=== PATIENT | male | born 1960 | race Caucasian/White ===

== ENCOUNTER 2019-10-29 13:49 | Inpatient (IN) | payer OTHER, SELFPAY ==
--- NOTE | 2019-10-29 16:33 | RAD ---
LEFT KNEE FOUR VIEWS: History: Knee injury. FINDINGS: There is some mild medial compartment joint space narrowing. There is a distracted patellar fracture. The main fracture line extends through the midportion of the patella although there may be a fractur e component through the inferior portion in addition to the main fracture line. IMPRESSION: Distracted patellar fracture. POS: HARRY
[2019-10-29] MEDS ORDERED: traMADol HCl 50 MG TAB PO PRN (17:43)
[2019-10-29] MEDS ORDERED: Ondansetron PF 4 MG/2 ML Vial IVP PRN (17:43)
[2019-10-29] MEDS ORDERED: Cyclobenzaprine 10 MG TAB PO PRN (17:43)
[2019-10-29] MEDS ORDERED: Dextrose 50% Abboject 50 ML SYRINGE SLOW IVP PRN (17:43)
[2019-10-29] MEDS ORDERED: HumaLOG 300 UNITS/3 ML VIAL SC PRN (17:43)
[2019-10-29] MEDS ORDERED: Ondansetron ODT 4 MG TAB PO PRN (17:43)
[2019-10-29] MEDS ORDERED: hydrALAZINE 20 MG/ML VIAL SLOW IVP PRN (17:43)
[2019-10-29] MEDS ORDERED: Dextrose 5% in Water 1,000 ML IV PRN (17:43)
[2019-10-29] MEDS ORDERED: Morphine 2 MG/ML VIAL SLOW IVP PRN (17:43)
[2019-10-29 17:51] LABS: #Eosinphils 0.4 thou/uL (0.0-0.7); #Monocytes 0.5 thou/uL (0.11-0.59); #Neutrophils 4.1 thou/uL (1.40-6.50); %Basophils 0.3 % (0.0-1.0); %Eosinophils 5.3 % (0.0-10.0); %Lymphocytes 29.1 % (21.0-51.0); %Monocytes 6.8 % (0.0-10.0); %Neutrophils 58.6 % (42.0-75.0); Hemoglobin 14.1 g/dL (14.0-18.0); Mean Corpuscular HGB CONC 33.9 g/dL (32.0-36.0); Mean Corpuscular Hemoglobin 30.5 pg (27.0-31.0); Mean Corpuscular Volume 89.9 fL (78.0-98.0); Mean Platelet Volume 9.7 fL (7.4-10.4); Platelet Count 211 thou/uL (130-400); RBC Distribution Width 11.5 % (11.5-14.5); Red Blood Cell (RBC) Count 4.63 mill/uL (4.70-6.10)
[2019-10-29 18:00] LABS: Anion Gap 13 mmol/L (10-20); BUN (Urea Nitrogen) 13 mg/dL (8.4-25.7); Calc. Creatinine Clearance 0 mL/min (70-130); Calcium 9.2 mg/dL (7.8-10.44); Carbon Dioxide 26 mmol/L (22-29); Chloride 104 mmol/L (98-107); Estimated GFR-MDRD 79; Glucose 92 mg/dL (70-105); Magnesium 1.8 mg/dL (1.6-2.6); Phosphorus 3.8 mg/dL (2.3-4.7); Potassium 3.6 mmol/L (3.5-5.1); Sodium 139 mmol/L (136-145)
[2019-10-29 18:17] VITALS: BMI 28.2
[2019-10-29] MEDS: Acetaminophen 325 MG TAB PO SCH (18:27)
--- NOTE | 2019-10-29 19:20 | HP ---
REQUESTING PHYSICIAN: Dr. Dasilva. ATTENDING SURGEON: Dr. Oh. CONSULTATIONS: Orthopedics, Dr. Radford. HISTORY OF PRESENT ILLNESS: The patient is a 59-year-old man, who reports having multiple falls onto his left knee. First knee injury was approximately 6 weeks ago. He reports that he has fallen at least 3 more times to include just a few days ago, which caused enough pain that he came to the emergency department today. He also had other complaints to include right ear pain, and he wanted his chronic rash evaluated. Upon evaluation and examination, the patient was noted to have a left patella fracture, right ear soft tissue infection, and psoriasis. We were asked to evaluate him for admission and obtain Orthopedic consultation regarding his knee injury. ALLERGIES: NONE. CURRENT MEDICATIONS: None. PAST MEDICAL HISTORY: None. PAST SURGICAL HISTORY: Right hernia repair. SOCIAL HISTORY: The patient is employed in agricultural business. He reports that he drinks on occasion, but definitely not more than once or twice a week. He uses chewing tobacco. He denies drug use. PHYSICAL EXAMINATION: VITAL SIGNS: Blood pressure 145/84, heart rate 99, respirations 18, oxygen saturation 99% on room air, temperature is 98.3. GENERAL: The patient is resting comfortably in bed. He is awake, alert, and oriented x3. [place] Coma Scale is 15. HEENT: Head is normocephalic and atraumatic. Eyes; extraocular motions are intact. PERRLA bilaterally. Ears; right ear has some superficial crusting and some salve applied to it. By report, the ear canal shows no evidence of otitis media. Oropharynx is clear. Neck : Nontender. Trachea is midline. No JVD. CHEST: Clear to auscultation with good inspiratory and expiratory effort. HEART: Regular rate and rhythm. ABDOMEN: Soft, flat, and nontender with active bowel sounds. PELVIS: Stable. EXTREMITIES: Neurovascularly intact x4. Left lower extremity; the knee has a moderate amount of anterior swelling over the patella with contusions noted. BACK: Atraumatic and nontender. SKIN: The patient has multiple areas of rash primarily on his lower extremities consistent with psoriasis. LABORATORY FINDINGS: White blood cell count 7.0, hemoglobin 14.1, hematocrit 41.6, platelets 211. Sodium 139, potassium 3.6, chloride 104, CO2 of 26, BUN 13, creatinine 0.97, glucose 92. Radiographs of the left knee show a displaced distracted left patella fracture. ASSESSMENT AND PLAN: 1. Status post fall with questionable acuity. 2. Left patella fracture. 3. Right otitis externa. 4. Psoriasis. Plan will be to admit the patient to the surgical floor. He will be placed in a knee immobilizer here in the emergency department. We will make him n.p.o. after midnight. We will do pain control, pulmonary toilet, gastritis and mechanical VTE prophylaxis. ER initiated Septra DS for his right ear. We will continue this. Dr. Radford has notified regarding the patient. He will evaluate him and determine whether he is treated operatively or nonoperatively, but currently, it is most likely be an operative procedure. The evaluation, examination, and laboratory and radiographic findings were done with Dr. Oh in the emergency department prior to this dictation. Job ID: [id number]
--- NOTE | 2019-10-29 21:16 | PDOC.CONS ---
- Consultation I have discussed the patient with the advanced practice provider and agree with the findings and plan of care annotated in their note dated 08/29/2019. I have examined the patient and reviewed the pertinent radiographic and laboratory findings. Briefly, 59-year-old male with left patella fracture. Multiple incidents over the last couple of months. Unclear timeline of injury. PLAN: Admit to trauma service Orthopedic surgery consulted.
[2019-10-29] MEDS: Famotidine 20 MG TAB PO SCH (21:33)
[2019-10-29] MEDS: Ibuprofen 600 MG TAB PO SCH (21:33)
[2019-10-29] MEDS: Sulfameth/Trimethoprim DS 800-160mg TAB PO SCH (21:33)
--- NOTE | 2019-10-29 23:25 | PDOC.BPN ---
- Brief Progress Note DATE OF SERVICE: 10/29/2019 SUBJECTIVE: Mr. Forrest is a 59-year-old male, status post ground level fall. he sustained left patella fracture . Patient has been mobilize and working with this condition for 5 days. Patient has been suing L knee brace at home for pain control OBJECTIVE: GENERAL: Currently, the patient is lying in bed comfortable with no acute respiratory distress, VITAL SIGNS: Stable. LUNGS: Clear bilaterally. HEART: Regular rate and rhythm. ABDOMEN: Soft, nondistended. EXTREMITY: L knee erythema , swollen and tender to palpation ASSESSMENT: 1. Status post ground level fall. 2. Left patella fracture delayed presentation PLAN: Continue supportive care. Continue pain control. continue physical therapy and occupational therapy. Dr Radford will take patient to the OR tomorrow for L patella fracture fixation . NPO at midnight
[2019-10-30] MEDS: Sodium Chloride 0.9% 1,000 ML IV SCH ×2 (00:20→16:12)
[2019-10-30] MEDS: Acetaminophen 325 MG TAB PO SCH ×5 (01:35→23:37)
[2019-10-30] MEDS: Ibuprofen 600 MG TAB PO SCH ×3 (05:39→21:21)
[2019-10-30 05:48] LABS: #Basophils 0.1 thou/uL (0.0-0.2); #Eosinphils 0.4 thou/uL (0.0-0.7); #Monocytes 0.6 thou/uL (0.11-0.59); #Neutrophils 3.2 thou/uL (1.40-6.50); %Basophils 0.9 % (0.0-1.0); %Eosinophils 6.7 % (0.0-10.0); %Lymphocytes 32.3 % (21.0-51.0); %Monocytes 9.2 % (0.0-10.0); %Neutrophils 51.1 % (42.0-75.0); Hemoglobin 13.2 g/dL (14.0-18.0); Mean Corpuscular HGB CONC 33.3 g/dL (32.0-36.0); Mean Corpuscular Hemoglobin 29.9 pg (27.0-31.0); Mean Corpuscular Volume 89.9 fL (78.0-98.0); Mean Platelet Volume 9.4 fL (7.4-10.4); Platelet Count 192 thou/uL (130-400); RBC Distribution Width 11.4 % (11.5-14.5); Red Blood Cell (RBC) Count 4.41 mill/uL (4.70-6.10); White Blood Cell (WBC) Count 6.3 thou/uL (4.8-10.8)
[2019-10-30 06:08] LABS: Anion Gap 10 mmol/L (10-20); BUN (Urea Nitrogen) 13 mg/dL (8.4-25.7); Calc. Creatinine Clearance 134 mL/min (70-130); Calcium 8.8 mg/dL (7.8-10.44); Carbon Dioxide 26 mmol/L (22-29); Chloride 106 mmol/L (98-107); Estimated GFR-MDRD Greater than 90; Glucose 90 mg/dL (70-105); Magnesium 1.9 mg/dL (1.6-2.6); Phosphorus 3.5 mg/dL (2.3-4.7); Sodium 138 mmol/L (136-145)
[2019-10-30] MEDS ORDERED: PROPOFOL 200 MG/20 ML VIAL ONE (09:18)
[2019-10-30] MEDS ORDERED: Bupivacaine HCl 0.5%/Epinephrine 1:200,000/PF 30 ml Vial ONE (09:18)
[2019-10-30] MEDS ORDERED: Ondansetron PF 4 MG/2 ML Vial ONE (09:18)
[2019-10-30] MEDS ORDERED: Lidocaine 1% PF 5 ML VIAL ONE (09:18)
[2019-10-30] MEDS: Famotidine 20 MG TAB PO SCH ×2 (11:21→21:21)
[2019-10-30] MEDS: Sulfameth/Trimethoprim DS 800-160mg TAB PO SCH ×2 (11:21→21:21)
[2019-10-30] MEDS: traMADol HCl 50 MG TAB PO PRN (11:28)
[2019-10-30 12:36] LABS: SARS-CoV-2 MS2 Positive; SARS-CoV-2 N Gene Negative; SARS-CoV-2 S Gene Negative; SARS-CoV-2 by NAA Not Detected (NotDetected); SARS-CoV-2 orf1ab Negative
[2019-10-30] MEDS ORDERED: Neomycin-Polymyxin 1 ML AMP ONE (14:31)
[2019-10-30] MEDS ORDERED: Midazolam HCl 2 mg/2 ml Vial ONE ×2 (14:46→14:49)
[2019-10-30] MEDS ORDERED: Fentanyl 100 MCG/2 ML VIAL ONE ×2 (14:46→14:49)
--- NOTE | 2019-10-30 15:44 | CON ---
DATE OF CONSULTATION: 10/30/2019 HISTORY OF PRESENT ILLNESS: Mr. Forrest 59-year-old white male, who reports that he fell at least 6 weeks ago and injured his left knee. He has been getting around, states his left knee has been very unstable and has been giving way and he has fallen at least 3 times more since then. The patient states that he has developed some right ear pain and he presented to the emergency room on 10/29/2019, for evaluation of the knee and his ear and also for his psoriasis. PAST MEDICAL HISTORY: Medical illnesses, none. CURRENT MEDICATIONS: None. ALLERGIES: NONE. PAST SURGICAL HISTORY: Right inguinal herniorrhaphy. PHYSICAL EXAMINATION: GENERAL: The patient is pleasant male, alert and oriented x3. VITAL SIGNS: Latest vital signs are temperature 97.8, pulse 82, respiratory rate 16, O2 saturation 99% on room air, blood pressure 129/76. HEENT: Unremarkable for age. Cranial nerves 2 through 12 are grossly intact. NECK: Has good range of motion without pain. LUNGS: Clear bilaterally. HEART: Regular rate and rhythm. ABDOMEN: Soft and nontender. Bowel sounds positive. : Not done. EXTREMITIES: The patient is tender in the anterior aspect of the left knee. There is a palpable defect in the inferior portion of the patella. The patient is unable to perform straight leg raising. The left lower extremity is neurovascularly intact. IMAGING STUDIES: X-rays of the left knee shows displaced fracture of the left patella with comminution of the lower pole of the patella. PLAN: The patient will require open reduction and internal fixation of the left patella. I explained to the patient that if there are too many fragments of the patella in the distal pole, then this may need to be excised and then the patellar tendon attached to the remaining patella. He will need to keep the knee straight for approximately 6 weeks to allow the repair to heal, and then he will have to work very hard on regaining as much flexion as possible as well as strength. Potential risks with the condition of surgery include, but are not limited to infection, bleeding, pain, damage to blood vessels, nerves, failure of the repair, the patient may require additional surgery, DVT and PE formation. The patient's questions were answered and he agreed to the procedure. Job ID: [id number]
[2019-10-30] MEDS ORDERED: Promethazine HCl 25 MG/ML VIAL SLOW IVP PRN (16:24)
[2019-10-30] MEDS ORDERED: Ketorolac Tromethamine 30 MG/ML VIAL IVP PRN (16:24)
[2019-10-30] MEDS ORDERED: Ondansetron HCl/PF 4 MG/2 ML Vial IVP PRN (16:24)
--- NOTE | 2019-10-30 16:56 | OP ---
DATE OF PROCEDURE: 10/30/2019 PREOPERATIVE DIAGNOSIS: Patellar fracture of the left knee. POSTOPERATIVE DIAGNOSIS: Patellar fracture of the left knee with comminution of the lower pole of the patella. PROCEDURES PERFORMED: Partial patellectomy and repair of the patellar tendon to the remaining patella. ANESTHESIA: General. DESCRIPTION OF PROCEDURE: The patient was given preoperative IV antibiotics, taken to the operating room, placed in the supine position. Satisfactory general anesthesia was performed. The left lower extremity was sterilely prepped and draped in usual fashion. After exsanguination, tourniquet was raised to 250 mmHg at the proximal left thigh. A longitudinal incision was made over the anterior aspect of the knee and the knee joint was entered. There was a hematoma between the two poles of the patella. The lower pole of the patella was broken in multiple pieces and was removed. The hematoma was removed. The knee joint was copiously irrigated with antibiotic solution. Two holes were drilled in the remaining portion of the patella, which was constituted over half of the original patella. Two holes were drilled in the inferior aspect of the superior pole of the patella. The patellar tendon was grasped using #2 FiberWire in a [place] type suture and then passed through the two tunnels and the patellar tendon was attached to the remaining patella and the #2 FiberWire was tied over the bone. This allowed for excellent repair of the patellar tendon to the remaining patella. #2 Vicryl was used to repair the medial and lateral retinacular tissue that was torn at the time that he broke his patella. The fat and subcutaneous tissue were closed with 0 and 2-0 Vicryl, and skin was closed with skin colton. Sterile dressing was applied. Tourniquet was released. The patient was placed back in his knee immobilizer. He was awakened, extubated, and transferred to recovery room in stable condition. ESTIMATED BLOOD LOSS: Minimal. COMPLICATIONS: None. TOURNIQUET TIME: 39 minutes. Job ID: [id number]
--- NOTE | 2019-10-30 17:50 | PRG ---
DATE OF SERVICE: 10/30/2019 SUBJECTIVE: The patient is currently on the surgical floor. He was admitted yesterday status post a fall when he sustained a left patella fracture. He has been n.p.o. after midnight. He is awaiting for open reduction and internal fixation of his fracture today with Dr. Radford. The patient reports his pain is controlled and has no issues at this time. OBJECTIVE: VITAL SIGNS: Temperature 97.9, heart rate 96, blood pressure 143/83, respirations 14, and oxygen saturation 97% on room air. GENERAL: The patient is resting comfortably in bed. He is awake, alert, conversant, and appropriate. [place] Coma Scale is 15. HEENT: Unremarkable with the exception of his right otitis externa, that is under treatment. LUNGS: Clear to auscultation bilaterally. HEART: Regular rate and rhythm. ABDOMEN: Soft, flat, nontender with active bowel sounds. EXTREMITIES: Neurovascularly intact x4. Left lower extremity is immobilized in a knee immobilizer. LABORATORY DATA: White blood cell count 6.3, hemoglobin 13.2, hematocrit 39.7, and platelets 192. Sodium 138, potassium 4.0, chloride 106, CO2 of 26, BUN 13, creatinine 0.83, glucose 90, magnesium 1.9, and phosphorus 3.5. DIAGNOSTIC DATA: There are no radiographs reviewed this morning. ASSESSMENT/PLAN: 1. Status post fall. 2. Left patella fracture, awaiting surgery. 3. Right otitis externa, under treatment. 4. Psoriasis. PLAN: Plan will be to continue n.p.o. status, pain control, pulmonary toilet, gastritis, and mechanical VTE prophylaxis. We will institute chemical VTE prophylaxis tomorrow and begin physical and occupational therapy postoperatively. We will discuss placement with the patient also. The evaluation and examination were done with Dr. Philip during rounds this morning. Job ID: [id number]
[2019-10-30] MEDS: CEFAZOLIN 2 GM in Premix Bag 1 BAG IVPB SCH (21:21)
--- NOTE | 2019-10-31 00:44 | PDOC.BPN ---
- Brief Progress Note DATE OF SERVICE: 10/30/2019 SUBJECTIVE: Mr. Forrest is a 59-year-old male, status post ground level fall. he sustained left patella fracture . Patient underwent L patella fixation today. Post op patient has been doing well pain is controlled , not yet working with PT/OT. Patient wish to go home OBJECTIVE: GENERAL: Currently, the patient is lying in bed comfortable with no acute respiratory distress, VITAL SIGNS: Stable. LUNGS: Clear bilaterally. HEART: Regular rate and rhythm. ABDOMEN: Soft, nondistended. EXTREMITY: L knee erythema , swollen and tender to palpation ASSESSMENT: 1. Status post ground level fall. 2. Left patella fracture delayed presentation , status post repaired PLAN: Continue supportive care. Continue pain control. continue physical therapy and occupational therapy.initiate lovenox for DVT prophylaxis
[2019-10-31] MEDS: Acetaminophen 325 MG TAB PO SCH ×2 (06:22→12:56)
[2019-10-31] MEDS: Ibuprofen 600 MG TAB PO SCH ×2 (06:22→15:48)
[2019-10-31] MEDS: CEFAZOLIN 2 GM in Premix Bag 1 BAG IVPB SCH (06:22)
[2019-10-31] MEDS: Famotidine 20 MG TAB PO SCH (09:42)
[2019-10-31] MEDS: Sulfameth/Trimethoprim DS 800-160mg TAB PO SCH (09:42)
[2019-10-31] MEDS: traMADol HCl 50 MG TAB PO PRN (09:45)
[2019-10-31 11:43] VITALS: BP 130/79; TEMP 98.3
[2019-10-31] MEDS ORDERED: Enoxaparin Sodium 40 MG/0.4 ML SYRINGE SC SCH (21:00)
--- NOTE | 2019-11-01 03:58 | DIS ---
DATE OF ADMISSION: 10/29/2019 DATE OF DISCHARGE: 10/31/2019 DISCHARGING PHYSICIAN: Anthony Philip DO CONSULTING PHYSICIAN: Soto Radford MD ADMITTING DIAGNOSES: 1. Left patellar fracture. 2. Right otitis externa. 3. Psoriasis. PROCEDURES: Open reduction and internal fixation of the left patellar fracture. HOSPITAL COURSE: The patient was admitted with multiple complaints including acute on chronic right ear likely otitis externa, was started on Bactrim for the same. The patient also reports knee injury, states he fell 6 weeks ago, but then multiple times here. He also had a patellar fracture, that was taken to the operative theatre and repaired. The patient tolerated the procedure well. Pain was controlled. His ear, he states it is improving. The patient has worked with PT and OT and is safe for discharge. He has been given ambulation instructions. The patient tolerated diet, has ambulated spontaneously, voided on the date of discharge. DISCHARGING MEDICATIONS: Going to be: 1. Bactrim DS 1 p.o. b.i.d. x10 days for the otitis externa. 2. Cipro drops 5 drops twice daily for otitis externa. 3. Tramadol 50 mg every 6 hours as needed. 4. Flexeril 10 mg every 6 hours as needed. 5. Continue Tylenol 650 mg every 4 to 6 hours. 6. Ibuprofen 400 mg every 6 hours as needed. 7. Gabapentin 300 mg twice daily. 8. Continue home medications. PHYSICAL EXAMINATION: VITAL SIGNS: On the date of discharge, temperature is 98.3, blood pressure is 130/79, heart rate is 96, breathing 18 times per minute, saturating 95% on room air. GENERAL: 59-year-old male, sitting up in bed, in no acute distress, wanting to go home. HEENT: Normocephalic, atraumatic. Trachea is midline. No JVD is appreciated. RESPIRATORY: Equal rise and fall. No respiratory distress. CARDIOVASCULAR: Regular rate and rhythm. No edema. ABDOMEN: Soft and nontender. PELVIS: Stable. MUSCULOSKELETAL: He moves extremities. Does have a straight leg brace noted about the left knee and left leg. He has good sensation distal to this. SKIN: Warm and dry. NEUROLOGIC: Alert and oriented. LABORATORY DATA: Today is limited to [id number] glucose of 95. FOLLOWUP: 1. Follow up will be with Dr. Radford in 2 weeks. 2. Referral to Dr. Borges with ENT, explained to the patient. 3. Follow up with PCP as needed. 4. I have answered all questions of the patient at bedside. The patient was seen by Dr. Anthony Philip. Greater than 30 minutes was taken in discharge planning of this patient. Job ID: [id number]
== END 2019-10-31 15:50 | disposition home or self-care (01) | DRG 489 ==
LOC: ERS 13:49 → SURG A 15:10 → ERS 17:02
PROVIDERS: ADMIT Surgery; ATTEND Surgery
PROC: 0QBF0ZZ Excision of Left Patella, Open Approach (ICD-10-PCS; principal; 2019-10-30)
DX: S82.042A Displaced comminuted fracture of left patella, initial encounter for closed fracture (principal); H60.91 Unspecified otitis externa, right ear; L40.9 Psoriasis, unspecified; E66.9 Obesity, unspecified; F17.220 Nicotine dependence, chewing tobacco, uncomplicated; Z90.49 Acquired absence of other specified parts of digestive tract; Z68.28 Body mass index [BMI] 28.0-28.9, adult
CPT/HCPCS: 36415; 36416; 80048; 83735; 84100; 85025; 87635; 93005; J0670; J0690; J2250; J2270; J2405; J2704; J3010; U0003